=== PATIENT | male | born 1960 | race Caucasian/White ===

== ENCOUNTER 2016-09-20 14:26 | Emergency (ER) | payer BC ==
[~2016-09-20] VITALS: Ht 188 cm; Wt 113.5 kg
[2016-09-20 16:24] LABS: HEMATOCRIT 46.6 % (38.0-50.0); MCH 29.4 PG (29.0-34.0); MCHC 34.5 G/DL (30.0-36.0); MCV 85.2 FL (86-99); MEAN PLAT.VOLUME 10.3 uM^3 (9.0-12.4); PLATELET COUNT 139 K/uL (156-360); RBC DIS.WIDTH-CV 12.6 % (11.8-14.6); RED BLOOD COUNT 5.47 M/uL (4.00-5.50); WHITE BLOOD COUNT 7.9 K/uL (4.1-10.2)
[2016-09-20 16:33] LABS: CHLORIDE 105 mEq/L (99-109); POTASSIUM 3.9 mEq/L (3.7-5.4); SODIUM 141 mEq/L (136-147)
[2016-09-20 16:34] LABS: GLUCOSE 107 mg/dL (70-99)
[2016-09-20 16:36] LABS: ANION GAP 12 MEQ/L (2-14)
[2016-09-20 16:38] LABS: GFR ESTIMATE (CALCULATED) > 59 mL/min/
[2016-09-20 16:39] LABS: UREA NITROGEN (BUN) 20 mg/dL (9-23)
[2016-09-20 16:45] LABS: TROP-I INTERPRETATION NEGATIVE; TROPONIN-I < 0.01 ng/mL (0.0-0.30)
[2016-09-20 18:54] LABS: TROP-I INTERPRETATION NEGATIVE; TROPONIN-I < 0.01 ng/mL (0.0-0.30)
[2016-09-20] MEDS ORDERED: ATARAX,VISTARIL50 MG PO (19:42)
[2016-09-20 20:01] VITALS: BP 136/92
== END 2016-09-20 20:02 | disposition home or self-care (01) ==
LOC: EME 14:26
PROVIDERS: Physician Assistant Medical
DX: R55 Syncope and collapse (principal)
CPT/HCPCS: 70450; 80048; 84484; 85027; 93005; 99281; 99284; Q0177